=== PATIENT | male | born 1960 | race Caucasian/White ===

== ENCOUNTER 2022-05-13 15:00 | Outpatient (CLI) | payer OTHER | END 2022-05-13 15:01 | disposition home or self-care (01) | LOC: NAV RAD 15:00 | PROVIDERS: ATTEND Family Medicine | DX: Z02.71 Encounter for disability determination (principal); S72.051D Unspecified fracture of head of right femur, subsequent encounter for closed fracture with routine healing; I50.20 Unspecified systolic (congestive) heart failure | CPT/HCPCS: 71046 ==